=== PATIENT | male | born 1955 | race Caucasian/White ===

== ENCOUNTER → 2024-04-21 14:03 | Outpatient (REF) | payer MEDICARE, OTHER, SELFPAY | LOC: CLAB 14:03 | PROVIDERS: ATTENDING PHYSICIAN Urology | DX: R31.0 Gross hematuria (principal) | CPT/HCPCS: 88112 ==

== ENCOUNTER → 2024-04-22 14:41 | Outpatient (REF) | payer MEDICARE, OTHER, SELFPAY | LOC: RAD 14:41 | PROVIDERS: ATTENDING PHYSICIAN Urology; FAMILY PHYSICIAN Student in an Organized Health Care Education/Training Program | DX: N40.1 Benign prostatic hyperplasia with lower urinary tract symptoms (principal); R31.0 Gross hematuria | CPT/HCPCS: 74178; Q9967 ==

== ENCOUNTER 2024-08-06 15:21 | Emergency (ER) | payer MEDICARE, OTHER, SELFPAY ==
[2024-08-06 15:32] VITALS: BP 112/66
--- NOTE | 2024-08-06 15:35 | ED.GENMED ---
ED Provider Triage
-
Patient seen by provider in Triage?: Seen in Triage
Attestation: A medical screening examination has been initiated by a qualified medical provider. Based on the assessment performed at this time, it has been determined that an emergent medical condition may exist and the patient has been informed
that further medical evaluation and possible additional diagnostic testing may be needed.
HPI: 69yoM here with upper abd pain and vomiting that began today after a 2 hour run. Hx of pancreatitis and this feels the same. Hx of pancreatic cancer s/p Whipple 20 years ago.
GENERAL: Alert , in no apparent distress
EYE: No visual abnormalities.
NECK: Trachea midline
ENT: No visible abnormalities.
LUNGS: No acute respiratory distress
NEUROLOGICAL: Alert and oriented
SKIN: Skin intact. No visible changes.
MUSCULOSKELETAL: Moving extremities normally
PSYCH: Normal and appropriate interaction.
This is a medical evaluation conducted in person to initiate diagnostic evaluation and provide initial therapeutics. Please see further documentation by the treating clinician.
Abdominal labs and CT abdomen ordered.
History of Present Illness
General
Chief Complaint: Abdominal Pain
Past History
Past History
ED Past Medical History: Cancer, Other and Other (Pancreatitis)
ED Past Surgical History: Cholecystectomy and Other
Patient has exhibited threatening behavior?: No
PSI?: No
Social History
Tobacco: Former smoker
Alcohol: None
Personal:
Living: with family
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
Family History
Family History: Other
Course
Orders/Labs/Results
Orders:
Orders
08/06/24 15:33
Lipase Urgent
08/06/24 15:34
CT Abd/pelvis W Iv Cont Urgent
Comment:
Reason For Exam: Epigastric pain, hx of pancreatitis
Complete Blood Count/With Diff Urgent
Comprehensive Metabolic Panel Urgent
ED Attending Note
-
Portions of this chart may have been created with voice recognition software.� Occasional wrong word or��sound alike� substitutions may have occurred due to the inherent limitations of voice recognition software.
Discharge Plan
Departure
Prescriptions:
No Action
omeprazole magnesium [Prilosec OTC] 20 MG tablet,delayed release (DR/EC)
20 mg PO DAILY Qty: 20 0RF
alum-mag hydroxide-simeth [Mag-Al Plus] 30 ML suspension
30 ml PO QIDPRN PRN (Reason: indigestion) Qty: 10 0RF
Discharge Date and Time
Print Language: MALTESE
[2024-08-06 15:54] LABS: % Basophils 0.2 % (0-2); % Eosinophils 0.4 % (0-6); % Immature Granulocytes 0.4 % (0-0.5); % Lymphocytes 13.8 % (20.5-51.1); % Monocytes 4.9 % (1.7-9.3); % Neutrophils 80.3 % (42.2-75.2); Absolute Lymphocytes 0.8 10^3/uL (1.2-3.4); Absolute Monocytes 0.3 10^3/uL (0.1-0.6); Absolute Neutrophils 4.4 10^3/uL (1.4-6.5); Hematocrit 38.9 % (39.0-52.0); Hemoglobin 13.4 g/dL (13.0-18.0); Mean Corp Hgb Conc. 34.4 g/dL (33.0-37.0); Mean Corpuscular Hgb 32.1 pg (27.0-31.0); Mean Corpuscular Volume 93.1 fL (80.0-94.0); Mean Platelet Volume 10.8 fL (7.4-10.4); Nucleated Red Blood Cells % 0 % (-); Platelet Count 211 10^3/uL (130-400); Red Blood Cell Count 4.18 10^6/uL (4.70-6.10); Red Cell Dist. Width 13.8 % (11.5-14.5); White Blood Cell Count 5.5 10^3/uL (4.8-10.8)
[2024-08-06 16:00] VITALS: BP 110/68
[2024-08-06 16:09] LABS: ALT (SGPT) 105 U/L (0-50); AST (SGOT) 74 U/L (17-59); Albumin 4.4 g/dl (3.5-5.0); Alkaline Phosphatase 61 U/L (38-126); Blood Urea Nitrogen 27 mg/dl (9-20); Calcium 9.3 mg/dl (8.4-10.2); Carbon Dioxide 25 mmol/L (22-30); Chloride 103 mmol/L (98-107); Glucose 128 mg/dl (70-99); Potassium 4.5 mmol/L (3.5-5.1); Sodium 141 mmol/L (135-145); Total Bilirubin 1.5 mg/dl (0.2-1.3); Total Protein 6.6 g/dl (6.3-8.2); eGFR > 60.00
[2024-08-06 16:17] LABS: Lipase 40 U/L (23-300)
[2024-08-06] MEDS: ZOFRAN 4 MG IV (19:19)
[2024-08-06] MEDS: ZOFRAN ODT (ORALLY DISINTEGRATING) 4 MG PO (19:26)
== END 2024-08-06 19:26 | disposition home or self-care (01) ==
LOC: EMR 15:21
PROVIDERS: Physician Assistant; EMERGENCY PHYSICIAN Emergency Medicine; FAMILY PHYSICIAN Student in an Organized Health Care Education/Training Program
DX: R10.10 Upper abdominal pain, unspecified (principal); Z87.891 Personal history of nicotine dependence
CPT/HCPCS: 99285; 96374; 74177; 76700; 80053; 83690; 85025; Q9967

== ENCOUNTER → 2025-08-24 13:33 | Outpatient (REF) | payer MEDICARE, OTHER, SELFPAY | LOC: RAD 13:33 | PROVIDERS: ATTENDING PHYSICIAN Student in an Organized Health Care Education/Training Program | DX: M54.50 Low back pain, unspecified (principal); Z85.07 Personal history of malignant neoplasm of pancreas; R06.02 Shortness of breath | CPT/HCPCS: 71046; 74177; Q9967 ==

== ENCOUNTER → 2025-08-27 17:24 | Outpatient (REF) | payer MEDICARE, OTHER, SELFPAY | LOC: RAD 17:24 | PROVIDERS: ATTENDING PHYSICIAN Student in an Organized Health Care Education/Training Program | DX: R06.02 Shortness of breath (principal) | CPT/HCPCS: 71275; Q9967 ==

== ENCOUNTER 2025-08-27 18:28 | Emergency (ER) | payer MEDICARE, OTHER, SELFPAY ==
[2025-08-27 18:31] VITALS: BP 142/83
[2025-08-27 18:54] LABS: Hematocrit 41.0 % (39.0-52.0); Hemoglobin 13.3 g/dL (13.0-18.0); Mean Corp Hgb Conc. 32.4 g/dL (33.0-37.0); Mean Corpuscular Volume 98.1 fL (80.0-94.0); Nucleated Red Blood Cells % 0 % (-); Platelet Count 353 10^3/uL (130-400); Red Cell Dist. Width 12.4 % (11.5-14.5)
[2025-08-27 19:00] LABS: INR 1.01; PT 13.6 Sec (11.4-14.6)
[2025-08-27 19:18] LABS: ALT (SGPT) 29 U/L (0-50); AST (SGOT) 24 U/L (17-59); Albumin 4.2 g/dl (3.5-5.0); Alkaline Phosphatase 65 U/L (38-126); Blood Urea Nitrogen 18 mg/dl (9-20); Calcium 9.1 mg/dl (8.4-10.2); Carbon Dioxide 28 mmol/L (22-30); Chloride 100 mmol/L (98-107); Glucose 102 mg/dl (70-99); Potassium 4.2 mmol/L (3.5-5.1); Sodium 138 mmol/L (135-145); Total Protein 7.1 g/dl (6.3-8.2); eGFR > 60.00
--- NOTE | 2025-08-27 19:43 | ED.GENMED ---
History of Present Illness
General
Chief Complaint: Breathing Problem
Source: patient
Exam Limitations: none
Time Seen by Provider: 08/27/25 19:40
History of Present Illness
History of Present Illness:
70yoM with a remote history of pancreatic cancer 21 years ago s/p Whipple procedure presenting with her for evaluation of abnormal outpatient CT scan. Patient traveled to [place] 1 month ago for a marathon. He has noticed that his heart rate
while exercising has been higher over the past month. He noticed that his right calf was sore last week but he thought he may have pulled a muscle from running. He developed shortness of breath, right lower back pain, cough about a week ago. He
was seen by his PCP and started on antibiotics for presumed. He had an outpatient CTA chest today which showed 'Findings at least suspicious for small volume right lower lobe pulmonary embolism with likely accompanying subsegmental atelectasis and
tiny right pleural effusion.' No prior history of VTE or tobacco use. He takes no prescriptions regularly.
Past History
Past History
ED Past Medical History: Cancer, Other and Other (Pancreatitis)
ED Past Surgical History: Cholecystectomy and Other
Patient has exhibited threatening behavior?: No
PSI?: No
Social History
Tobacco: Former smoker
Alcohol: None
Personal:
Living: with family
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
Family History
Family History: Other
Phy Exam
General Physical Exam
General Presentation: well appearing and no apparent distress
General Skin: warm and dry
General Habitus: normal
General Mental: alert
ENT Exam
ENT Exam: normocephalic
Cardiovascular Exam
Cardiovascular Exam: regular rate/rhythm, no edema and no murmur
Pulmonary Exam
Pulmonary Exam: lungs clear, no respiratory distress, no rales, no crackles, no rhonchi and no wheezing
Neurological Exam
Neurological Exam: alert
Joby Coma Scale
Eye Opening: Spontaneous
Verbal Response: Oriented
Motor Response: Obeys Commands
GCS Total Score: 15
Skin Exam
Skin Exam: normal color and warm/dry
Psychiatric Exam
Psychiatric Exam: normal mood/affect
Scores
Heart Failure Risk
Heart Failure Risk Score: Not Applicable
PE Low Risk Score
Hemodynamically unstable?: No
Thrombolysis or embolectomy needed?: No
Active bleeding or high risk for bleeding?: No
>24hrs on supplemental O2 required to maintain SaO2 >90%?: No
PE diagnosed while on anticoagulation?: No
Severe pain needing IV medication required for >24 hours?: No
Medical or social reason for admission >24 hours?: No
Creatinine clearance < 30 mL/min by Cockcroft-Gault?: No
Severe liver impairment?: No
?: No
Documented hx of heparin-induced thrombocytopenia (HIT)?: No
High risk features on CT (or pulmonary angiogram/MRA)(confirm with echo if features seen)?: No
High risk features on echo, if performed?: No
High risk features on laboratory testing?: No
High risk features on lower extremity US, if performed?: No
High risk features on ECG (confirm with echo if features seen)?: No
Recommendations: Patient is considered low risk
Course
Orders/Labs/Results
Orders:
Orders
08/27/25 18:36
Electrocardiogram (*1) Urgent
Reason for Study: Other
Other Reason for Exam: Respiratory Distress
EKG- Treatment ONCE
08/27/25 18:43
Complete Blood Count/With Diff Urgent
Comprehensive Metabolic Panel Urgent
PT/INR [Prothrombin Time] Urgent
08/27/25 19:43
Cardiac Monitoring- Treatment ONCE
08/27/25 20:05
Venous Doppler Lwr Ext Bilat [US Periph Venous LOWER Ext Garcia] Urgent
Comment:
Reason For Exam: pulmonary embolism
08/27/25 20:34
Oxycodone/Acetaminophen [Percocet 5/325] 1 tablet PO NOW STA
08/27/25 21:24
NT-proBNP Urgent
Troponin I Urgent
08/27/25 22:39
Apixaban [Eliquis] 10 mg PO ONCE ONE
Abnormal Lab Results
08/27/25
18:43
RBC 4.18 L 10^6/uL
(4.70-6.10)
MCV 98.1 H fL
(80.0-94.0)
MCH 31.8 H pg
(27.0-31.0)
MCHC 32.4 L g/dL
(33.0-37.0)
Absolute Neuts (auto) 6.6 H 10^3/uL
(1.4-6.5)
Neutrophils % 76.7 H %
(42.2-75.2)
Lymphocytes % 14.1 L %
(20.5-51.1)
Glucose 102 H mg/dl
(70-99)
08/27/25 18:43
08/27/25 18:43
Vital Signs
Initial and Last Documented VS:
Initial Vital Signs
Temp Pulse Resp BP Pulse Ox
98.6 F 66 16 142/83 97
08/27/25 18:31 08/27/25 18:31 08/27/25 18:31 08/27/25 18:31 08/27/25 18:31
Last Documented Vital Signs
Temp Pulse Resp BP Pulse Ox
98.6 F 58 25 119/79 94
08/27/25 18:31 08/27/25 22:45 08/27/25 22:45 08/27/25 22:00 08/27/25 22:45
MDM/Problems Addressed
Differential Diagnosis Includes:
70yoM presenting after an abnormal outpatient CT scan. Has been having R back pain and SOB for over a week. CTA showed small volume R lower lobe pulmonary embolism with tiny pleural effusion. No evidence of right heart strain on imaging. Travel to
[place] 1 month ago so PE likely provoked from this. Patient well appearing in no distress. He is oxygenating well on room air.
Initial ED plan: Workup initiated in triage. Basic labs unremarkable. EKG shows sinus bradycardia with nonspecific T wave changes in anterior leads. Will check troponin/BNP and bilateral venous duplex.
*Pulse Oximetry
SaO2: 97
Oxygen Mode of Delivery: Room air
Patient hypoxic: no
*EKG
Interpreted by ED Provider?: Yes
EKG Intrepretation Date: 08/27/25
Heart Rate: 56
Rate: bradycardiac
Rhythm: sinus
Searcy: normal axis
Interval: normal interval
QRS Pattern: normal QRS
Ischemia: T-wave inversion (V2-V3)
*Critical Care Note
Total Time (30-74mins, 75-104mins- exclusive of procedures): Not Applicable
Update Note
Update Note:
Both BNP and troponin are within normal limits. Venous duplex shows nonocclusive thrombus in the left popliteal, peroneal, and posterior tibial veins. Vitals stable throughout ED stay. D/w Dr. Platt. Patient meeting low risk PE criteria and
both patient and feel comfortable with discharge. Dose of Eliquis given in ED and prescription for a starter pack sent to pharmacy. Advised close f/u with PCP and pulmonology. He was instructed to stop exercising until seen/cleared by
pulmonology. Strict ED return precautions reviewed and he was discharged in stable condition.
ED Attending Note
-
Portions of this chart may have been created with voice recognition software.� Occasional wrong word or��sound alike� substitutions may have occurred due to the inherent limitations of voice recognition software.
Discharge Plan
Departure
Patient Disposition: Home (Routine Discharge)
Date of Disposition: 08/27/25
Time of Disposition: 22:49
Patient with high blood pressure during this ER visit?: No
Discharge Problem:
Pulmonary embolism, Deep vein thrombosis of left lower extremity
Instructions: ED Low Risk PE
Prescriptions:
New
Eliquis DVT-PE Treat 30D Start 5 mg (74 tabs) tablets,dose pack
See Rx Instructions .ROUTE .COMPLEX Qty: 74 0RF
Rx Instructions:
orally per package directions
No Action
omeprazole magnesium [Prilosec OTC] 20 MG tablet,delayed release (DR/EC)
20 mg PO DAILY Qty: 20 0RF
alum-mag hydroxide-simeth [Mag-Al Plus] 30 ML suspension
30 ml PO QIDPRN PRN (Reason: indigestion) Qty: 10 0RF
ondansetron 4 mg tablet,disintegrating
4 mg PO Q8H PRN (Reason: nausea and vomiting) 4 Days Qty: 12 0RF
Referrals:
Curly Siddiqui MD [Active, Pulmonary Medicine]
Gautam Dobbs DO [Family Provider, Family Practice]
Activity Restrictions/Additional Instructions:
Take Eliquis as prescribed. Do not take nonsteroidal anti-inflammatory medications while taking Eliquis (ibuprofen, Motrin, Advil, Aleve). You may take acetaminophen (Tylenol). Monitor for blood in your stool or black stools while taking the
blood thinner.
The pulmonology office should call you on Saturday to schedule a follow-up appointment. Please call the office if you do not hear from them. You should also follow-up with your family doctor.
Return to the ER with any new or worsening symptoms including dizziness or passing out.
Interventions
Interventions:
*Risk Screen - Suicide Last Done: 08/27/25 18:34
*General Assessment Last Done: 08/27/25 18:31
*Neglect/Abuse Screening Last Done: 08/27/25 18:34
*ED- Fall Risk Assessment Last Done: 08/27/25 21:12
*ED COVID-19 Vaccine History Last Done: 08/27/25 21:12
*ED Influenza Vaccine History Last Done: 08/27/25 21:12
*Nursing Disposition Last Done: 08/27/25 23:10
ED- Cardiac Assessment Last Done: 08/27/25 21:12
ED- Pulmonary Assessment Last Done: 08/27/25 21:12
Discharge Date and Time
Discharge Date/Time: 08/27/25 23:16
Print Language: IRISH
[2025-08-27 20:08] VITALS: BP 126/72
[2025-08-27] MEDS: PERCOCET 5/325 1 TABLET PO (20:41)
[2025-08-27 21:12] VITALS: BP 124/75; BMI 24.6
[2025-08-27 21:56] LABS: Troponin I < 0.012 ng/ml
[2025-08-27 22:00] VITALS: BP 119/79
[2025-08-27] MEDS: ELIQUIS 10 MG PO (22:45)
== END 2025-08-27 23:16 | disposition home or self-care (01) ==
LOC: EMR 18:28
PROVIDERS: Emergency Medicine; Physician Assistant; EMERGENCY PHYSICIAN Emergency Medicine; FAMILY PHYSICIAN Student in an Organized Health Care Education/Training Program
DX: I26.99 Other pulmonary embolism without acute cor pulmonale (principal); I82.432 Acute embolism and thrombosis of left popliteal vein; Z79.01 Long term (current) use of anticoagulants; Z85.07 Personal history of malignant neoplasm of pancreas; Z87.19 Personal history of other diseases of the digestive system; Z87.891 Personal history of nicotine dependence; Z90.411 Acquired partial absence of pancreas; Z90.49 Acquired absence of other specified parts of digestive tract
CPT/HCPCS: 99284; 71275; 80053; 83880; 84484; 85025; 85610; 93005; 93970; Q9967